=== PATIENT | male | born 1945 | race Caucasian/White ===

== ENCOUNTER 2017-04-01 22:11 | Emergency (ER) | payer MEDICARE, OTHER ==
[~2017-04-01] VITALS: Ht 175.3 cm; Wt 55.0 kg
[2017-04-01] MEDS ORDERED: INSU100C14 SQ (22:34)
[2017-04-01] MEDS ORDERED: MAGN400T40 PO (22:34)
[2017-04-01] MEDS ORDERED: SIMV-261 PO (22:34)
[2017-04-01] MEDS ORDERED: FERR-89 PO (22:34)
[2017-04-01] MEDS ORDERED: CYAN250010 PO (22:34)
[2017-04-01] MEDS ORDERED: DOCU250C91 PO (22:34)
[2017-04-01] MEDS ORDERED: SULF1TAB42 PO (22:34)
[2017-04-01] MEDS ORDERED: MIRALAX PO (22:34)
[2017-04-01] MEDS ORDERED: APIX5TAB PO (22:34)
[2017-04-01] MEDS ORDERED: ASPI81 PO (22:34)
[2017-04-01] MEDS ORDERED: TAMS0.4C32 PO (22:34)
[2017-04-01] MEDS ORDERED: INSLAN SQ (22:34)
[2017-04-01] MEDS ORDERED: FURO20 PO (22:34)
[2017-04-01] MEDS ORDERED: OXYC5 PO (22:34)
[2017-04-01] MEDS ORDERED: PANT40TA25 PO (22:34)
[2017-04-01 23:03] LABS: BASOPHILS # (AUTO) 0.12 K/uL (0.00-0.20); BASOPHILS % (AUTO) 0.8 % (0.0-2.0); EOSINOPHILS # (AUTO) 0.11 K/uL (0.00-0.70); EOSINOPHILS % (AUTO) 0.77 % (1.0-6.0); HEMATOCRIT 29.8 % (41-53); LYMPHOCYTES # (AUTO) 1.6 K/uL (1.0-4.8); LYMPHOCYTES % (AUTO) 11.1 % (22.0-44.0); MEAN CORPUSCULAR HEMOGLOBIN 30.4 pg (26.0-34.0); MEAN CORPUSCULAR HGB CONC 33.4 G/dL (31.0-37.0); MEAN CORPUSCULAR VOLUME 91 fL (80-100); MONOCYTES # (AUTO) 0.5 K/uL (0.1-1.0); MONOCYTES % (AUTO) 3.6 % (2.0-9.0); NEUTROPHILS # (AUTO) 12.4 K/uL (1.8-7.7); NEUTROPHILS % (AUTO) 83.8 % (40.0-70.0); PLATELET COUNT (AUTO) 479 K/uL (150-450); RED BLOOD CELL COUNT(AUTO) 3.27 MIL/uL (4.50-5.90); RED CELL DISTRIBUTION WIDTH 17.3 % (11.5-14.5); WHITE BLOOD COUNT (AUTO) 14.8 K/uL (4.5-11.0)
[2017-04-01 23:09] LABS: ALANINE AMINOTRANSFERASE 16 U/L (12-78); ALBUMIN 2.6 g/dL (3.4-5.0); ANION GAP 9 mmol/L (8-16); ASPARTATE AMINOTRANSFERASE 14 U/L (15-37); BILIRUBIN,TOTAL 0.2 mg/dL (0.1-1.0); CALCIUM, TOTAL 8.5 mg/dL (8.8-10.5); CARBON DIOXIDE 22 mmol/L (22-29); CHLORIDE 91 mmol/L (98-107); GLOMERULAR FILTR. RATE CALC > 60 mL/min (>60); POTASSIUM 4.1 mmol/L (3.5-5.1); UREA NITROGEN, BLOOD 14 mg/dL (7-18)
[2017-04-01 23:10] LABS: SODIUM SERUM 122 mmol/L (136-145)
[2017-04-02] MEDS ORDERED: SODIUM CHLORIDE 0.9% 1,000 ML IV ONE (00:15)
[2017-04-02] MEDS ORDERED: DEXTROSE 50%-WATER 25 GM/50 ML SYRINGE IVP ONE (03:15)
[2017-04-02 03:18] LABS: GLUCOSE COMMENT 1 Doctor Notified; GLUCOSE,POINT OF CARE 46 MG/DL (70-110)
[2017-04-02 04:00] LABS: GLUCOSE,POINT OF CARE 159 MG/DL (70-110)
[2017-04-02 04:49] LABS: GLUCOSE COMMENT 1 Doctor Notified; GLUCOSE,POINT OF CARE 169 MG/DL (70-110)
[2017-04-02 05:21] VITALS: BP 99/59
== END 2017-04-02 05:56 | disposition home or self-care (01) ==
LOC: EMS 22:13
DX: E11.649 Type 2 diabetes mellitus with hypoglycemia without coma (principal); E87.1 Hypo-osmolality and hyponatremia; I25.10 Atherosclerotic heart disease of native coronary artery without angina pectoris; F17.210 Nicotine dependence, cigarettes, uncomplicated; N40.0 Benign prostatic hyperplasia without lower urinary tract symptoms; Z79.01 Long term (current) use of anticoagulants; Z79.4 Long term (current) use of insulin; Z79.82 Long term (current) use of aspirin
CPT/HCPCS: 36415; 80053; 82962; 85025; 96361; 96374; 99285; J7030

== ENCOUNTER 2017-04-08 10:02 | Inpatient (IN) | payer MEDICARE, OTHER ==
[~2017-04-08] VITALS: Ht 165.1 cm; Wt 59.1 kg
[~2017-04-08 10:02] MED LIST: APIX5TAB PO; ASPI81 PO; CYAN250010 PO; DOCU250C91 PO; FERR-89 PO; FURO20 PO; INSLAN SQ; INSU100C14 SQ; MAGN400T40 PO; MIRALAX PO; OXYC5 PO; PANT40TA25 PO; SIMV-261 PO; SULF1TAB42 PO; TAMS0.4C32 PO
[2017-04-08] MEDS ORDERED: ACETAMINOPHEN 650 MG RECTAL SUPPOSITORY PR ONE (10:15)
[2017-04-08] MEDS ORDERED: SODIUM CHLORIDE 0.9% 1,000 ML IV ONE ×3 (10:15→11:45)
[2017-04-08 10:23] LABS: GLUCOSE,POINT OF CARE 224 MG/DL (70-110)
[2017-04-08] MEDS ORDERED: MIRALAX PO (10:27)
[2017-04-08] MEDS ORDERED: LORA0.5T2 PO (10:27)
[2017-04-08] MEDS ORDERED: LATA2.5D2 OU (10:27)
[2017-04-08] MEDS ORDERED: MIDO2.5T10 PO (10:27)
[2017-04-08] MEDS ORDERED: MULT-1272 PO (10:27)
[2017-04-08 10:37] LABS: BASOPHILS % (AUTO) 1.3 % (0.0-2.0); EOSINOPHILS % (AUTO) 0.9 % (1.0-6.0); HEMATOCRIT 29.3 % (41-53); HEMOGLOBIN 10.1 g/dL (13.5-17.5); LYMPHOCYTES % (AUTO) 16.9 % (22.0-44.0); MEAN CORPUSCULAR HEMOGLOBIN 31.2 pg (26.0-34.0); MEAN CORPUSCULAR HGB CONC 34.5 G/dL (31.0-37.0); MEAN CORPUSCULAR VOLUME 90 fL (80-100); MONOCYTES # (AUTO) 0.8 K/uL (0.1-1.0); MONOCYTES % (AUTO) 6.6 % (2.0-9.0); NEUTROPHILS # (AUTO) 8.8 K/uL (1.8-7.7); NEUTROPHILS % (AUTO) 74.3 % (40.0-70.0); PLATELET COUNT (AUTO) 289 K/uL (150-450); RED BLOOD CELL COUNT(AUTO) 3.24 MIL/uL (4.50-5.90); RED CELL DISTRIBUTION WIDTH 16.6 % (11.5-14.5)
[2017-04-08 10:49] LABS: CHLORIDE 96 mmol/L (98-107); POTASSIUM 3.8 mmol/L (3.5-5.1); SODIUM SERUM 131 mmol/L (136-145)
[2017-04-08 10:50] LABS: ANION GAP 7 mmol/L (8-16); CALCIUM, TOTAL 8.5 mg/dL (8.8-10.5); CARBON DIOXIDE 28 mmol/L (22-29); CREATININE 0.81 mg/dL (0.60-1.30); GLOMERULAR FILTR. RATE CALC > 60 mL/min (>60); GLUCOSE,RANDOM 196 mg/dL (70-110); UREA NITROGEN, BLOOD 12 mg/dL (7-18)
[2017-04-08 10:55] LABS: ALANINE AMINOTRANSFERASE 15 U/L (12-78); ALBUMIN 2.4 g/dL (3.4-5.0); ALKALINE PHOSPHATASE 83 U/L (46-116); ASPARTATE AMINOTRANSFERASE 16 U/L (15-37); BILIRUBIN,TOTAL 0.3 mg/dL (0.1-1.0); CREATINE KINASE, TOTAL 45 U/L (39-308); TOTAL PROTEIN, SERUM 6.3 g/dL (6.4-8.2)
[2017-04-08 10:56] LABS: LACTIC ACID 1.4 mmol/L (0.4-2.0)
[2017-04-08 11:13] LABS: INFLUENZA TYPE A NEGATIVE FOR TYPE A (NEGATIVE); INFLUENZA TYPE B NEGATIVE FOR TYPE B (NEGATIVE)
[2017-04-08] MEDS ORDERED: VANCOMYCIN HCL 1 GM/D5% WATER 200 ML IV ONE (11:15)
[2017-04-08] MEDS ORDERED: PIPERACILLIN/TAZO 3.375 GM/D5W 50 ML IV ONE (11:15)
[2017-04-08 11:43] LABS: INR 1.2 (0.9-1.1); PROTHROMBIN TIME 12.5 SEC (9.4-11.6)
[2017-04-08] MEDS ORDERED: ONDANSETRON HCL 4 MG/2 ML VIAL IVP PRN ×2 (13:30→17:45)
[2017-04-08] MEDS ORDERED: ACETAMINOPHEN 325 MG TABLET PO PRN ×2 (13:30→17:45)
[2017-04-08] MEDS ORDERED: 0.9% SODIUM CHLORIDE 10 ML SYRINGE IVP PRN (13:30)
[2017-04-08 13:31] LABS: APPEARANCE,URINE TURBID (CLEAR); BILIRUBIN,URINE NEGATIVE (NEGATIVE); GLUCOSE, URINE (UA) NEGATIVE (NEGATIVE); KETONES,URINE NEGATIVE (NEGATIVE); LEUKOCYTE ESTERASE ,URINE LARGE (NEGATIVE); NITRATE,URINE NEGATIVE (NEGATIVE); OCCULT BLOOD,URINE LARGE (NEGATIVE); PH,URINE 5.5 (5.0-8.0); PROTEIN,URINE POS 1+ (NEGATIVE); UROBILINOGEN,URINE 0.2 mg/dL (<=1.0)
[2017-04-08 13:44] LABS: ABG BASE EXCESS 0.2 mmol/L (-2.0-3.0); ABG CARBOXYHEMOGLOBIN 0.9 % (0.0-1.5); ABG HCO3 24.8 mmol/L (22.0-26.0); ABG METHEMOGLOBIN 0.4 % (0.0-1.5); ABG OXYGEN CONTENT 13.1 mL/dL (15.0-23.0); ABG OXYGEN SATURATION 99.2 % (95.0-98.0); ABG OXYHEMOGLOBIN 97.9 % (94.0-100.0); ABG PCO2 38 mmHg (35-45); ABG PH 7.425 (7.35-7.450); ABG TOTAL HEMOGLOBIN 9.3 G/dL (12.0-18.0); O2 DEVICE,BLOOD GAS CANNULA (ROOM AIR); PO2, ARTERIAL BG 163.2 mmHg (75.0-83.0); SITE, BLOOD GAS RT RADIAL; SOURCE, BLOOD GAS ARTERIAL; TEMPERATURE, FAHRENHEIT, BG 100.9 FAHREN (96.0-98.6)
[2017-04-08 13:46] LABS: BACTERIA,URINE Few /HPF (None Seen); WBC,URINE 51-100 /HPF (0-5)
[2017-04-08 13:48] LABS: TRANSITIONAL EPI CELLS,URINE Rare /LPF (None Seen)
[2017-04-08] MEDS ORDERED: GADOBUTROL 1 MMOL/ML 10 ML VIAL IVP ONE (15:50)
[2017-04-08] MEDS ORDERED: BISACODYL 10 MG RECTAL RECTAL SUPPOSITORY PR PRN (17:45)
[2017-04-08] MEDS ORDERED: HYDROCODONE/ACETAMINOPHEN 5-325 MG TABLET PO PRN (17:45)
[2017-04-08] MEDS ORDERED: MORPHINE SULFATE 2 MG/ML SYRINGE IVP PRN (17:45)
[2017-04-08] MEDS ORDERED: IPRATROPIUM BROMIDE 0.5 MG/2.5 ML NEB SOLUTION NEB PRN (17:45)
[2017-04-08] MEDS ORDERED: MIDODRINE HCL 2.5 MG TABLET PO PRN (17:45)
[2017-04-08] MEDS ORDERED: ALBUTEROL SULFATE 2.5 MG/0.5 ML NEB SOLUTION NEB PRN (17:45)
[2017-04-08] MEDS ORDERED: MAGNESIUM HYDROXIDE SUSPENSION 30 ML UDCUP PO PRN (17:45)
[2017-04-08] MEDS ORDERED: ZOLPIDEM TARTRATE 5 MG TABLET PO PRN (17:45)
[2017-04-08] MEDS ORDERED: POLYETHYLENE GLYCOL 3350 17 GM PACKET PO PRN (17:45)
[2017-04-08 18:04] VITALS: BP 101/66
[2017-04-08] MEDS ORDERED: SODIUM CHLORIDE 0.9% 100 ML ONE (18:11)
[2017-04-08 20:00] VITALS: BP 98/54
[2017-04-08] MEDS: OxyCODONE HCL 5 MG IR TABLET PO SCH (20:30)
[2017-04-08] MEDS: SIMVASTATIN 40 MG TABLET PO SCH (20:32)
[2017-04-08] MEDS: DOCUSATE SODIUM 250 MG CAPSULE PO SCH (20:32)
[2017-04-08] MEDS: VANCOMYCIN HCL 1 GM/D5% WATER 200 ML IV SCH (20:34)
[2017-04-08] MEDS: SODIUM CHLORIDE 0.9% 1,000 ML IV SCH (20:35)
[2017-04-08] MEDS ORDERED: SODIUM CHLORIDE 0.9% 250 ML IV ONE (20:42)
[2017-04-08] MEDS: MAGNESIUM OXIDE 400 MG TABLET PO SCH (20:58)
[2017-04-08] MEDS ORDERED: DOCUSATE SODIUM 100 MG CAPSULE PO SCH (21:00)
[2017-04-08] MEDS ORDERED: PANTOPRAZOLE SODIUM 40 MG DR TABLET PO SCH (21:00)
[2017-04-08] MEDS: LATANOPROST 0.005% 2.5 ML OPHTHALMIC SOLUTION OU SCH (21:30)
[2017-04-08] MEDS: PIPERACILLIN/TAZO 3.375 GM/D5W 50 ML IV SCH (22:45)
[2017-04-09 00:01] VITALS: BP 100/57
[2017-04-09] MEDS: HEPARIN SODIUM,PORCINE 5,000 UNITS/ML VIAL SQ SCH ×3 (00:19→15:26)
[2017-04-09] MEDS: LORazepam 0.5 MG TABLET PO SCH ×4 (00:19→17:45)
[2017-04-09] MEDS: OxyCODONE HCL 5 MG IR TABLET PO SCH ×6 (00:19→20:26)
[2017-04-09] MEDS: DEXAMETHASONE SOD PHOS 4 MG/ML VIAL IVP SCH ×3 (00:20→15:26)
[2017-04-09 04:00] VITALS: BP 90/53
[2017-04-09] MEDS: PIPERACILLIN/TAZO 3.375 GM/D5W 50 ML IV SCH ×4 (05:21→22:03)
[2017-04-09 06:01] LABS: BASOPHILS % (AUTO) 0.1 % (0.0-2.0); EOSINOPHILS % (AUTO) 0 % (1.0-6.0); HEMATOCRIT 26.1 % (41-53); HEMOGLOBIN 8.8 g/dL (13.5-17.5); LYMPHOCYTES # (AUTO) 0.4 K/uL (1.0-4.8); LYMPHOCYTES % (AUTO) 2.9 % (22.0-44.0); MEAN CORPUSCULAR HGB CONC 33.7 G/dL (31.0-37.0); MEAN CORPUSCULAR VOLUME 92 fL (80-100); MONOCYTES # (AUTO) 0.1 K/uL (0.1-1.0); MONOCYTES % (AUTO) 0.8 % (2.0-9.0); NEUTROPHILS # (AUTO) 14.7 K/uL (1.8-7.7); PLATELET COUNT (AUTO) 251 K/uL (150-450); RED BLOOD CELL COUNT(AUTO) 2.84 MIL/uL (4.50-5.90); RED CELL DISTRIBUTION WIDTH 17.1 % (11.5-14.5)
[2017-04-09 06:02] LABS: NEUTROPHILS % (AUTO) 96.2 % (40.0-70.0)
[2017-04-09 06:11] LABS: ALANINE AMINOTRANSFERASE 16 U/L (12-78); ALBUMIN 1.9 g/dL (3.4-5.0); ALKALINE PHOSPHATASE 78 U/L (46-116); ANION GAP 12 mmol/L (8-16); ASPARTATE AMINOTRANSFERASE 15 U/L (15-37); BILIRUBIN,TOTAL 0.5 mg/dL (0.1-1.0); CALCIUM, TOTAL 8.4 mg/dL (8.8-10.5); CARBON DIOXIDE 20 mmol/L (22-29); CHLORIDE 98 mmol/L (98-107); CREATININE 0.65 mg/dL (0.60-1.30); GLOMERULAR FILTR. RATE CALC > 60 mL/min (>60); GLUCOSE,RANDOM 343 mg/dL (70-110); POTASSIUM 3.7 mmol/L (3.5-5.1); SODIUM SERUM 130 mmol/L (136-145); TOTAL PROTEIN, SERUM 5.4 g/dL (6.4-8.2); UREA NITROGEN, BLOOD 11 mg/dL (7-18)
[2017-04-09] MEDS ORDERED: INSULIN GLARGINE,HUM.REC.ANLOG 100 UNITS/ML SQ SCH (06:30)
[2017-04-09 08:00] VITALS: BP 96/55
[2017-04-09] MEDS: DOCUSATE SODIUM 250 MG CAPSULE PO SCH ×2 (09:46→20:27)
[2017-04-09] MEDS: MULTIVITAMINS WITH MINERALS, THERAPEUTIC TABLET PO SCH (09:46)
[2017-04-09] MEDS: VANCOMYCIN HCL 1 GM/D5% WATER 200 ML IV SCH ×2 (09:46→20:27)
[2017-04-09] MEDS: MAGNESIUM OXIDE 400 MG TABLET PO SCH ×2 (09:46→20:26)
[2017-04-09] MEDS: ASPIRIN 81 MG CHEWABLE TABLET PO SCH (09:46)
[2017-04-09] MEDS: TAMSULOSIN HCL 0.4 MG CAPSULE PO SCH (09:46)
[2017-04-09] MEDS: FERROUS SULFATE 325 MG EC TABLET PO SCH (09:46)
[2017-04-09] MEDS: CYANOCOBALAMIN 500 MCG TABLET PO SCH (09:47)
[2017-04-09] MEDS: INSULIN ASPART 100 UNITS/ML SQ SCH ×3 (09:55→17:44)
[2017-04-09] MEDS: SODIUM CHLORIDE 0.9% 1,000 ML IV SCH ×2 (09:56→22:04)
[2017-04-09] MEDS: PANTOPRAZOLE SODIUM 40 MG/VIAL IVP SCH (09:56)
[2017-04-09 12:00] VITALS: BP 98/51
[2017-04-09 12:42] LABS: GLUCOSE,POINT OF CARE 368 MG/DL (70-110)
[2017-04-09 16:00] VITALS: BP 111/64
[2017-04-09] MEDS ORDERED: CYAN500 PO (17:33)
[2017-04-09] MEDS ORDERED: DEXTROSE 50%-WATER 25 GM/50 ML SYRINGE IVP PRN (19:00)
[2017-04-09 20:00] VITALS: BP 87/50
[2017-04-09] MEDS: SIMVASTATIN 40 MG TABLET PO SCH (20:26)
[2017-04-09] MEDS: INSULIN GLARGINE,HUM.REC.ANLOG 100 UNITS/ML SQ SCH (20:40)
[2017-04-09] MEDS: INSULIN ASPART 100 UNITS/ML SQ PRN (20:42)
[2017-04-09] MEDS: LATANOPROST 0.005% 2.5 ML OPHTHALMIC SOLUTION OU SCH (20:51)
[2017-04-10] VITALS: BP 86/47
[2017-04-10] MEDS: LORazepam 0.5 MG TABLET PO SCH ×4 (00:34→18:34)
[2017-04-10] MEDS: OxyCODONE HCL 5 MG IR TABLET PO SCH ×6 (00:34→21:06)
[2017-04-10] MEDS: HEPARIN SODIUM,PORCINE 5,000 UNITS/ML VIAL SQ SCH ×3 (00:35→16:38)
[2017-04-10] MEDS: DEXAMETHASONE SOD PHOS 4 MG/ML VIAL IVP SCH ×3 (00:35→21:08)
[2017-04-10 01:52] LABS: GLUCOSE,POINT OF CARE 405 MG/DL (70-110)
[2017-04-10 01:52] LABS: GLUCOSE,POINT OF CARE 165 MG/DL (70-110)
[2017-04-10 01:57] LABS: GLUCOSE,POINT OF CARE 318 MG/DL (70-110)
[2017-04-10 04:00] VITALS: BP 117/65
[2017-04-10] MEDS: PIPERACILLIN/TAZO 3.375 GM/D5W 50 ML IV SCH ×4 (04:53→21:41)
[2017-04-10] MEDS: INSULIN ASPART 100 UNITS/ML SQ PRN ×2 (06:04→21:37)
[2017-04-10 06:08] LABS: ANION GAP 8 mmol/L (8-16); CALCIUM, TOTAL 8.7 mg/dL (8.8-10.5); CARBON DIOXIDE 23 mmol/L (22-29); CHLORIDE 104 mmol/L (98-107); GLOMERULAR FILTR. RATE CALC > 60 mL/min (>60); GLUCOSE,RANDOM 286 mg/dL (70-110); POTASSIUM 3.8 mmol/L (3.5-5.1); SODIUM SERUM 135 mmol/L (136-145); UREA NITROGEN, BLOOD 15 mg/dL (7-18); VANCOMYCIN,RANDOM 19.2 mcg/mL (25.0-50.0)
[2017-04-10 08:00] VITALS: BP 108/70
[2017-04-10] MEDS ORDERED: VANCOMYCIN HCL 750 MG in DEXTROSE 5%-WATER 150 ML IV SCH (08:00)
[2017-04-10] MEDS: CYANOCOBALAMIN 500 MCG TABLET PO SCH (08:39)
[2017-04-10] MEDS: PANTOPRAZOLE SODIUM 40 MG/VIAL IVP SCH (08:39)
[2017-04-10] MEDS: DOCUSATE SODIUM 250 MG CAPSULE PO SCH ×2 (08:40→21:08)
[2017-04-10] MEDS: FERROUS SULFATE 325 MG EC TABLET PO SCH (08:40)
[2017-04-10] MEDS: TAMSULOSIN HCL 0.4 MG CAPSULE PO SCH (08:40)
[2017-04-10] MEDS: MULTIVITAMINS WITH MINERALS, THERAPEUTIC TABLET PO SCH (08:40)
[2017-04-10] MEDS: MAGNESIUM OXIDE 400 MG TABLET PO SCH ×2 (08:40→21:08)
[2017-04-10] MEDS: ASPIRIN 81 MG CHEWABLE TABLET PO SCH (08:41)
[2017-04-10] MEDS: INSULIN ASPART 100 UNITS/ML SQ SCH ×3 (08:50→18:38)
[2017-04-10] MEDS: INSULIN GLARGINE,HUM.REC.ANLOG 100 UNITS/ML SQ SCH ×2 (08:51→21:41)
[2017-04-10 11:33] VITALS: BP 105/58
[2017-04-10] MEDS: SODIUM CHLORIDE 0.9% 1,000 ML IV SCH (11:56)
[2017-04-10 14:50] LABS: EOSINOPHILS % (AUTO) 0 % (1.0-6.0); HEMATOCRIT 23.5 % (41-53); HEMOGLOBIN 7.9 g/dL (13.5-17.5); LYMPHOCYTES # (AUTO) 0.9 K/uL (1.0-4.8); LYMPHOCYTES % (AUTO) 6.7 % (22.0-44.0); MEAN CORPUSCULAR HEMOGLOBIN 30.6 pg (26.0-34.0); MEAN CORPUSCULAR HGB CONC 33.7 G/dL (31.0-37.0); MEAN CORPUSCULAR VOLUME 91 fL (80-100); MONOCYTES # (AUTO) 0.3 K/uL (0.1-1.0); MONOCYTES % (AUTO) 2.2 % (2.0-9.0); NEUTROPHILS # (AUTO) 12.6 K/uL (1.8-7.7); PLATELET COUNT (AUTO) 287 K/uL (150-450); RED BLOOD CELL COUNT(AUTO) 2.58 MIL/uL (4.50-5.90); RED CELL DISTRIBUTION WIDTH 16.9 % (11.5-14.5)
[2017-04-10 14:51] LABS: NEUTROPHILS % (AUTO) 91.1 % (40.0-70.0)
[2017-04-10 14:59] LABS: ANION GAP 8 mmol/L (8-16); CALCIUM, TOTAL 8.5 mg/dL (8.8-10.5); CARBON DIOXIDE 25 mmol/L (22-29); CHLORIDE 105 mmol/L (98-107); CREATININE 0.78 mg/dL (0.60-1.30); GLOMERULAR FILTR. RATE CALC > 60 mL/min (>60); GLUCOSE,RANDOM 233 mg/dL (70-110); POTASSIUM 3.8 mmol/L (3.5-5.1); SODIUM SERUM 138 mmol/L (136-145); UREA NITROGEN, BLOOD 17 mg/dL (7-18)
[2017-04-10 15:05] LABS: ALANINE AMINOTRANSFERASE 24 U/L (12-78); ALBUMIN 1.7 g/dL (3.4-5.0); ALKALINE PHOSPHATASE 68 U/L (46-116); ASPARTATE AMINOTRANSFERASE 53 U/L (15-37); BILIRUBIN,TOTAL 0.2 mg/dL (0.1-1.0); TOTAL PROTEIN, SERUM 5.2 g/dL (6.4-8.2)
[2017-04-10 15:42] VITALS: BP 106/57
[2017-04-10 20:20] VITALS: BP 111/69
[2017-04-10 20:48] LABS: GLUCOSE,POINT OF CARE 316 MG/DL (70-110)
[2017-04-10] MEDS: SIMVASTATIN 40 MG TABLET PO SCH (21:08)
[2017-04-10] MEDS: LATANOPROST 0.005% 2.5 ML OPHTHALMIC SOLUTION OU SCH (22:08)
[2017-04-11 00:19] VITALS: BP 106/65
[2017-04-11] MEDS: OxyCODONE HCL 5 MG IR TABLET PO SCH ×5 (00:43→16:46)
[2017-04-11] MEDS: HEPARIN SODIUM,PORCINE 5,000 UNITS/ML VIAL SQ SCH ×3 (00:43→16:00)
[2017-04-11] MEDS: LORazepam 0.5 MG TABLET PO SCH ×3 (00:43→12:35)
[2017-04-11 02:13] VITALS: BP 108/68
[2017-04-11] MEDS: SODIUM CHLORIDE 0.9% 1,000 ML IV SCH ×2 (03:16→14:40)
[2017-04-11] MEDS: PIPERACILLIN/TAZO 3.375 GM/D5W 50 ML IV SCH ×3 (03:54→16:00)
[2017-04-11] MEDS: INSULIN ASPART 100 UNITS/ML SQ PRN (05:57)
[2017-04-11 06:58] LABS: BASOPHILS # (AUTO) 0.01 K/uL (0.00-0.20); BASOPHILS % (AUTO) 0.1 % (0.0-2.0); EOSINOPHILS % (AUTO) 0 % (1.0-6.0); LYMPHOCYTES # (AUTO) 0.6 K/uL (1.0-4.8); LYMPHOCYTES % (AUTO) 7.1 % (22.0-44.0); MEAN CORPUSCULAR HEMOGLOBIN 30.2 pg (26.0-34.0); MEAN CORPUSCULAR HGB CONC 33.1 G/dL (31.0-37.0); MEAN CORPUSCULAR VOLUME 91 fL (80-100); MONOCYTES # (AUTO) 0.2 K/uL (0.1-1.0); MONOCYTES % (AUTO) 1.9 % (2.0-9.0); NEUTROPHILS # (AUTO) 8.1 K/uL (1.8-7.7); NEUTROPHILS % (AUTO) 90.9 % (40.0-70.0); PLATELET COUNT (AUTO) 283 K/uL (150-450); RED BLOOD CELL COUNT(AUTO) 2.64 MIL/uL (4.50-5.90); RED CELL DISTRIBUTION WIDTH 16.7 % (11.5-14.5)
[2017-04-11 07:16] LABS: ALANINE AMINOTRANSFERASE 21 U/L (12-78); ALBUMIN 1.7 g/dL (3.4-5.0); ALKALINE PHOSPHATASE 58 U/L (46-116); ANION GAP 9 mmol/L (8-16); ASPARTATE AMINOTRANSFERASE 20 U/L (15-37); BILIRUBIN,TOTAL 0.2 mg/dL (0.1-1.0); CALCIUM, TOTAL 8.3 mg/dL (8.8-10.5); CARBON DIOXIDE 23 mmol/L (22-29); CHLORIDE 106 mmol/L (98-107); CREATININE 0.72 mg/dL (0.60-1.30); GLOMERULAR FILTR. RATE CALC > 60 mL/min (>60); GLUCOSE,RANDOM 148 mg/dL (70-110); POTASSIUM 3.6 mmol/L (3.5-5.1); SODIUM SERUM 138 mmol/L (136-145); TOTAL PROTEIN, SERUM 4.9 g/dL (6.4-8.2); UREA NITROGEN, BLOOD 18 mg/dL (7-18)
[2017-04-11 07:49] LABS: GLUCOMETER DEV NAME(LOC) 5S 2N; GLUCOSE,POINT OF CARE 273 MG/DL (70-110)
[2017-04-11 07:50] LABS: GLUCOMETER DEV NAME(LOC) 5S 2N; GLUCOSE,POINT OF CARE 149 MG/DL (70-110)
[2017-04-11 07:51] VITALS: BP 107/61
[2017-04-11 07:54] LABS: GLUCOMETER DEV NAME(LOC) 5S 2N; GLUCOSE,POINT OF CARE 227 MG/DL (70-110)
[2017-04-11] MEDS: DEXAMETHASONE SOD PHOS 4 MG/ML VIAL IVP SCH (08:01)
[2017-04-11] MEDS: MAGNESIUM OXIDE 400 MG TABLET PO SCH (08:05)
[2017-04-11] MEDS: FERROUS SULFATE 325 MG EC TABLET PO SCH (08:05)
[2017-04-11] MEDS: DOCUSATE SODIUM 250 MG CAPSULE PO SCH (08:05)
[2017-04-11] MEDS: ASPIRIN 81 MG CHEWABLE TABLET PO SCH (08:05)
[2017-04-11] MEDS: TAMSULOSIN HCL 0.4 MG CAPSULE PO SCH (08:06)
[2017-04-11] MEDS: PANTOPRAZOLE SODIUM 40 MG/VIAL IVP SCH (08:07)
[2017-04-11] MEDS: MULTIVITAMINS WITH MINERALS, THERAPEUTIC TABLET PO SCH (08:08)
[2017-04-11] MEDS: CYANOCOBALAMIN 500 MCG TABLET PO SCH (08:08)
[2017-04-11] MEDS: INSULIN ASPART 100 UNITS/ML SQ SCH ×2 (08:10→12:38)
[2017-04-11] MEDS: INSULIN GLARGINE,HUM.REC.ANLOG 100 UNITS/ML SQ SCH (10:30)
[2017-04-11 10:59] VITALS: BP 104/63
[2017-04-11 15:26] VITALS: BP 129/73
[2017-04-11 19:49] LABS: GLUCOMETER DEV NAME(LOC) 5S 1L; GLUCOSE,POINT OF CARE 252 MG/DL (70-110)
[2017-04-12 07:56] LABS: GLUCOMETER DEV NAME(LOC) 5S 2N; GLUCOSE,POINT OF CARE 163 MG/DL (70-110)
== END 2017-04-11 17:00 | DRG 871 ==
LOC: EMS 10:04 → UNDOADMIN 14:55 → ICU 14:55 → 5S 04-10 10:00
PROVIDERS: ADMIT Hospitalist; ATTEND Hospitalist
DX: A41.9 Sepsis, unspecified organism (principal); G92 Toxic encephalopathy; E43 Unspecified severe protein-calorie malnutrition; C79.31 Secondary malignant neoplasm of brain; E87.1 Hypo-osmolality and hyponatremia; R16.0 Hepatomegaly, not elsewhere classified; N39.0 Urinary tract infection, site not specified; L03.90 Cellulitis, unspecified; J98.11 Atelectasis; C43.9 Malignant melanoma of skin, unspecified; D64.9 Anemia, unspecified; E11.9 Type 2 diabetes mellitus without complications; E78.5 Hyperlipidemia, unspecified; F03.90 Unspecified dementia, unspecified severity, without behavioral disturbance, psychotic disturbance, mood disturbance, and anxiety; I10 Essential (primary) hypertension; I25.10 Atherosclerotic heart disease of native coronary artery without angina pectoris; N40.0 Benign prostatic hyperplasia without lower urinary tract symptoms; B96.20 Unspecified Escherichia coli [E. coli] as the cause of diseases classified elsewhere; Z87.891 Personal history of nicotine dependence; Z92.3 Personal history of irradiation; Z79.4 Long term (current) use of insulin; Z79.899 Other long term (current) drug therapy; Z79.01 Long term (current) use of anticoagulants; Z79.82 Long term (current) use of aspirin; Z68.21 Body mass index [BMI] 21.0-21.9, adult; Z83.3 Family history of diabetes mellitus
CPT/HCPCS: 36556; 70450; 70553; 71250; 82805; 82962; 83605; 84145; 87040; 87081; 87086; 87804; 93005; 96374; 96375; 99291; A9585; C9113; J1100; J1644; J1815; J2543; J3370; J7030; J7050; J7060